=== PATIENT | male | born 1950 | race Caucasian/White ===

== ENCOUNTER 2018-05-09 17:02 | Outpatient (REF) | payer MEDICARE, OTHER, SELFPAY ==
[2018-05-09 19:30] LABS: ALT 40 U/L (12-78); AST 35 U/L (15-37); Alkaline Phosphatase 104 U/L (46-116); Anion Gap 9.6 mmol/L (3-11); BUN 16 mg/dL (7-18); Bilirubin, Total 0.6 mg/dL (0.2-1.0); CO2 26.4 mmol/L (21.0-32.0); CREATININE 0.94 mg/dL (0.70-1.30); Calcium 8.7 mg/dL (8.5-10.1); Chloride 104 mmol/L (98-107); Cholesterol 221 mg/dL (50-200); Glucose 105 mg/dL (70-100); HDL Cholesterol 41 mg/dL (40-60); LDL CHOLESTEROL 159 mg/dL (<100); Potassium 3.9 mmol/L (3.5-5.1); Sodium 140 mmol/L (136-145); Total Protein 7.7 g/dL (6.4-8.2); Triglyceride 114 mg/dL (30-150)
[2018-05-11 10:37] LABS: Hepatitis C Ab w Rflx HCV PCR Negative (NEGAT)
== END 2018-05-09 17:22 ==
LOC: NCHCN 17:02
PROVIDERS: PCP Family Medicine; Visit Provider Family Medicine
DX: I10 Essential (primary) hypertension (principal); E78.5 Hyperlipidemia, unspecified; E11.9 Type 2 diabetes mellitus without complications; Z11.59 Encounter for screening for other viral diseases
CPT/HCPCS: 80053; 80061; 83721; 86803

== ENCOUNTER 2018-05-13 00:10 | Outpatient (CLI) | payer MEDICARE, OTHER, SELFPAY ==
--- NOTE | 2018-05-13 08:30 | ETT_ITS ---
*[facility]* *[facility]* [address] [place] [address] Stress Electrocardiography Garrick protocol Date of study: 05/13/2018 *PATIENT PRESENTATION* Height: 169.4cm (66.7in) Blood Pressure: Weight: 95.5kg (210lb) BSA: 2.15m^2 Referring physician: Camilo Garcia Ordering physician: Camilo Garcia Impressions: - Markedly abnormal study. - High risk features on this markedly positive stress test. Summary: 1. Stress: The target heart rate was achieved. Recommendations: Recommended patient go to ER for referral to [facility] for [facility]. Indication: R07.89. History: REASON FOR VISIT: THIS PATIENT WITH TYPE 2 DIABETES AND HYPERTENSION REPORTS CHEST BURNING WITH ACTIVITIES LIKE RUNNING A CHAIN SAW OR SHOVELING IT SUBSIDES WITH REST HE ALSO REPORTS NOTING MORE SHORTNESS OF BREATH WITH ACTIVITY. Risk factors: Family history of coronary artery disease. Hypertension. Diabetes mellitus. Obesity. Cholesterol: 221mg/dl. HDL: 41mg/dl. LDL: 159mg/dl. Triglycerides: 114mg/dl. ALLERGIES: NO KNOWN DRUG ALLERGIES. MEDICATIONS: LISINOPRIL 10 MG DAILY. ASPIRIN 325 MG TAKE 1/2 TAB DAILY PRN. Protocol: Garrick protocol. Baseline ECG: SINUS RHYTHM. HR 75 BPM. Stress protocol: + +---+ + !Stage !HR !BP (mmHg) ! + +---+ + !Baseline supine !69 !146/84 (105)! + +---+ + !Baseline standing !71 !138/80 (99) ! + +---+ + !Stage I; 1.7mph, 10degrees; 3 min !138!152/80 (104)! + +---+ + !Stage II; 2.5mph, 12degrees; 3 min!156! ! + +---+ + !Peak stress !160! ! + +---+ + !Recovery; 1 min !160!160/72 (101)! + +---+ + !Recovery; 3 min !102!174/90 (118)! + +---+ + !Recovery; 6 min !98 !132/72 (92) ! + +---+ + * Stress results: Maximal heart rate during stress was 160bpm (104% of maximal predicted heart rate). The maximal predicted heart rate was 154bpm. The target heart rate was achieved. The rate-pressure product for the peak heart rate and blood pressure was 67383jd Hg/min. Stress ECG: TREADMILL PORTION OF STRESS TEST ENDED IN 4 MINUTES & 46 SECONDS BECAUSE OF CHEST BURNING. HEART RATE AND BLOOD PRESSURE RESPONSE TO EXERCISE MAX HR = 160 % OF TARGET = 103 OCCASIONAL PVCs APPROXIMATE METS ACHIEVED = 6.74 CHEST BURNING AT PEAK EXERCISE. CHEST BURNING SUBSIDED BY [address] SEGMENT ELEVATIONS IN PRECORDIAL LEADS MOST PROMINENT IN LEADS V3 & V4. ST SEGMENT ELEVATIONS FIRST NOTED AFTER 3 MINUTES OF TREADMILL EXERCISE. WIDENING OF QRS ALSO NOTED DURING PEAK EXERCISE. WIDENING SUBSIDED BY [address] SEGMENT STILL ELEVATED IN LEAD V3. MILDLY FUNCTIONAL CAPACITY FOR EXERCISE. DR MCKEON CONSULTED REGARDING ST SEGMENT CHANGES AND CHEST BURNING SYMPTOMS. PT SENT TO THE ER PER DR MCKEON'S REQUEST. Study data: Dale Mckeon MD supervised and was readily available during the procedure. This study was interpreted by [facility]. Study status: Routine. Consent: The risks, benefits, and alternatives to the procedure were explained to the patient and informed consent was obtained. Procedure: Initial setup. A baseline ECG was recorded. Surface ECG leads and manual cuff blood pressure measurements were monitored. Heart sounds: Normal. Lung sounds: Normal. Treadmill exercise testing was performed using the Garrick protocol. Study completion: The patient tolerated the procedure well and was discharged from the lab. Discharge: The patient left the laboratory in stable condition. Birthdate: Patient birthdate: 1950. Sex: Gender: male. Study date: Study date: 05/13/2018. Study time: 08:30 AM. Signature Documentation: The Stress ECG portion of this study was interpreted by Dale Mckeon MD. Electronically signed by Dale Mckeon 05/13/2018 10:21
== END 2018-05-13 00:30 ==
PROVIDERS: PCP Family Medicine; Visit Provider Family Medicine
DX: R07.89 Other chest pain (principal); R94.30 Abnormal result of cardiovascular function study, unspecified; R06.02 Shortness of breath; I10 Essential (primary) hypertension; E11.9 Type 2 diabetes mellitus without complications; Z82.49 Family history of ischemic heart disease and other diseases of the circulatory system
CPT/HCPCS: 93016; 93018; 93017

== ENCOUNTER 2018-05-13 09:18 | Emergency (ER) | payer MEDICARE, OTHER, SELFPAY ==
--- NOTE | 2018-05-13 09:41 | NUR.NOTE ---
0925: Patient refusing EKG or other treatment at this time. Understands risk of without treatment. Requesting to speak with MD. Nursing Note:
--- NOTE | 2018-05-13 09:47 | ED.GENADUL_ITS ---
Discharge Plan Disposition Patient Disposition: AGAINST MEDICAL ADVICE Condition: Stable Discharge Details Chief Complaint: GenMedical Clinical Impression: Chest pain, Abnormal stress test Primary Care Provider: Camilo Garcia ED Provider: Nano Norris Discharge Instructions Instructions: Chest Pain (ED) Additional Instructions: You were leaving AGAINST MEDICAL ADVICE. Your abnormal stress test today indicated that you likely will need additional testing which may require cardiac catheterization as well as transfer to [facility]. Call your primary care doctor today to schedule follow-up appointment for reevaluation as soon as possible. Return immediately to the emergency department any worsening or new concerning symptoms. Discharge Data Discharge Date/Time-TO BE ENTERED AT DEPARTURE: 05/13/18 09:52 Discharge Physician: Nano Norris Medical Decision Making 67-year-old male with a history of diabetes, hypertension, high cholesterol who presents from cardiac stress lab for positive stress test today. Upon arrival to ED, patient refused vitals, EKG and states he needs to leave to get home for a Social Security appointment at 1045. Patient states that he is been having intermittent chest pain on and off for months worse with exertion and better with rest denies any other associated symptoms. Discussed with Dr. Neal and he stated that patient had a high risk stress test today in which he developed chest pain, with ST elevation in the precordial leads. He had recommended patient be evaluated in the ED with consideration for plan for cardiac catheterization/transfer. Patient is requesting to leave. Had a long discussion regarding the risks of and disability due to his abnormal stress test. He demonstrated capacity to make decisions and was able to reiterate the risks back to me. AMA form signed. Cardiology will call patient at home to schedule follow-up appointment for reevaluation. It was discussed considering starting a beta janae with Dr. Neal and patient but patient had refused vitals so I am unsure of his heart rate or blood pressure and pt is aware of this plan and will f/u with cardiology regarding this. HPI General Mode of arrival: ambulatory . Date/Time Provider Initiated Documentation: 05/13/18 09:34 . Limitations to Documentation: no limitations . Information obtained by: patient . HPI Narrative: Patient is a 67-year-old male with a history of hypertension, high cholesterol, diabetes who presents from cardiology for questionable positive stress test today. Patient had a stress test ordered per his primary doctor Dr. Garcia for intermittent chest pain for the past 2 months. Patient states the chest pain has been worse with exertion and better with rest. He denies any chest pain at present. Patient denies any associated symptoms of shortness of breath, nausea, vomiting or dizziness with it. Patient states his stress test was ordered by his primary care Dr. Garcia on Wednesday. Patient was sent from the cardiac stress lab for ED evaluation for positive stress test today. Patient states he was recently started on aspirin, Lipitor and lisinopril. Related Data Allergies Allergy/AdvReac Type Severity Reaction Status Date / Time No Known Drug Allergies Allergy Unverified 06/19/15 12:51 General Stated Complaint: GenMedical ADRIAN: 2 Review of Systems Review of Systems All systems reviewed & are unremarkable except as noted in HPI and below Constitutional Reports as per HPI, Denies chills and Denies fever(s) Eyes Denies blurry vision ENT Denies dizziness, Denies sore throat and Denies throat swelling Cardiovascular Denies chest pain and Denies dyspnea Respiratory Denies dyspnea Gastrointestinal Denies abdominal pain, Denies diarrhea and Denies vomiting Genitourinary Denies hematuria and Denies dysuria Musculoskeletal Denies back pain and Denies numbness Integumentary/Breasts Denies lesions and Denies rash Neurologic Denies dizziness and Denies numbness Allergic/Immunologic Denies throat swelling [facility] Medical History Hyperlipemia (Acute) Diabetes (Chronic) HTN (hypertension) (Chronic) Bilateral inguinal hernia Surgical History No significant past surgical history (Acute) Social History alcohol intake: current alcohol intake frequency: a few times a month substance use type: does not use Exam Const General: cooperative, healthy appearing and no acute distress HENAZ Head: normal to inspection Face and sinus: normal facial exam Eyes General: appearance normal, both eyes and all related structures Neck Neck: normal visual inspection and No submandibular swelling Lymphatic: no lymphadenopathy noted Resp Effort & Inspection: normal respiratory effort and able to speak in complete sentences Auscultation: clear to auscultation bilaterally Cardio Rate: regular rate Rhythm: regular rhythm GI Palpation: soft, not firm, not rigid and nontender Skin General skin exam: no rashes or lesions noted Neuro General: alert, awake and oriented x3 Cognition: normal cognition Speech: speech normal Motor: muscle tone normal throughout Sensory Exam: no sensory deficits noted Extrem General: normal to inspection, full ROM and no edema Psych Appearance: grossly normal Mental Status: mental status grossly normal Speech and Movement: speech and movement normal Affect: normal affect
--- NOTE | 2018-05-13 10:02 | PDOC.ERCMPRO ---
Care Management Progress Note 05/13-Chris was brought to the emergency department by MERRILL Wolf. Chris was at the hospital for a stress test and it was abnormal and he was also complaining of chest pain. Met with Chris as he did not want to stay for further testing. Multiple issues preventing him from staying. Chris states that he has a $2500 deductible. Chris has Medicare and [employer] and states the $2500 is with [employer]. This CM has not heard of that deductible as a secondary to Medicare. Ar[employer] in [employer] is currently running the [employer]. Discussed patient assistance and gave Chris a Patient Assistance form to complete. Chris also states that he has a Social Security appt, via phone, at 1015 this morning and he can not miss this. Chris states that he has horses and cows to feed at home. Discussed family or neighbors helping him and he states that he would not ask his family and that he could ask a neighbor but they are all so busy. Discussed with Chris that he would be leaving AMA. Kristine MOMIN also leaving AMA and the possibility of without the proper testing and treatment. Please see provider note. Chris did leave AMA. He does have this CM's contact information if further assistance is needed.
--- NOTE | 2018-05-13 10:50 | CMPROGNOTE_ITS ---
Care Management Progress Note 05/13-Chris was brought to the emergency department by MERRILL Wolf. Chris was at the hospital for a stress test and it was abnormal and he was also complaining of chest pain. Met with Chris as he did not want to stay for further testing. Multiple issues preventing him from staying. Chris states that he has a $2500 deductible. Chris has Medicare and [employer] and states the $2500 is with [employer]. This CM has not heard of that deductible as a secondary to Medicare. Ar[employer] in [employer] is currently running the [employer]. Discussed patient assistance and gave Chris a Patient Assistance form to complete. Chris also states that he has a Social Security appt, via phone, at 1015 this morning and he can not miss this. Chris states that he has horses and cows to feed at home. Discussed family or neighbors helping him and he states that he would not ask his family and that he could ask a neighbor but they are all so busy. Discussed with Chris that he would be leaving AMA. Kristine MOMIN also leaving AMA and the possibility of without the proper testing and treatment. Please see provider note. Chris did leave AMA. He does have this CM's contact information if further assistance is needed.
== END 2018-05-13 09:52 | disposition left against medical advice (07) ==
PROVIDERS: Emergency Provider Physician Assistant; PCP Family Medicine
DX: R07.9 Chest pain, unspecified (principal); R94.39 Abnormal result of other cardiovascular function study; R94.31 Abnormal electrocardiogram [ECG] [EKG]; Z53.29 Procedure and treatment not carried out because of patient's decision for other reasons; E11.9 Type 2 diabetes mellitus without complications; I10 Essential (primary) hypertension
CPT/HCPCS: 93016; 93018; 99281; 93017

== ENCOUNTER 2018-06-09 09:37 | Outpatient (RCR) | payer MEDICARE, OTHER, SELFPAY | END 2018-06-16 23:59 | disposition home or self-care (01) | LOC: CR 09:37 | PROVIDERS: PCP Family Medicine; Visit Provider Family Medicine | DX: I25.2 Old myocardial infarction (principal); I10 Essential (primary) hypertension; Z51.89 Encounter for other specified aftercare ==

== ENCOUNTER 2018-07-04 11:56 | Outpatient (REF) | payer MEDICARE, OTHER, SELFPAY ==
[2018-07-04 19:46] LABS: HCT 38.5 % (40.0-50.0); HGB 12.7 g/dL (13.5-17.5); Mean Corpuscular Hemoglobin 28.7 pg (27.0-33.0); Mean Corpuscular Volume 86.9 fL (80-95); Mean Platelet Volume 9.5 fL (8.0-11.0); Platelet Count 314 x1000/uL (130-400); RBC 4.43 m/cumm (4.50-6.00); RBC Distribution Width 14.6 % (11.8-14.1); White Blood Cell Count 6.89 k/cumm (4.4-10.8)
[2018-07-04 19:58] LABS: Anion Gap 10.8 mmol/L (3-11); BUN 23 mg/dL (7-18); CO2 25.2 mmol/L (21.0-32.0); CREATININE 0.86 mg/dL (0.70-1.30); Chloride 104 mmol/L (98-107); Cholesterol 132 mg/dL (50-200); Glucose 112 mg/dL (70-100); HDL Cholesterol 34 mg/dL (40-60); LDL CHOLESTEROL 80 mg/dL (<100); Potassium 4.6 mmol/L (3.5-5.1); Sodium 140 mmol/L (136-145); Triglyceride 131 mg/dL (30-150)
== END 2018-07-04 12:16 ==
LOC: NCHCN 11:56
PROVIDERS: PCP Family Medicine; Visit Provider Family Medicine
DX: I25.810 Atherosclerosis of coronary artery bypass graft(s) without angina pectoris (principal); I10 Essential (primary) hypertension; J11.1 Influenza due to unidentified influenza virus with other respiratory manifestations; D50.0 Iron deficiency anemia secondary to blood loss (chronic)
CPT/HCPCS: 80048; 80061; 83721; 85027

== ENCOUNTER 2018-07-15 12:53 | Outpatient (RCR) | payer MEDICARE, OTHER, SELFPAY | END 2018-07-17 23:59 | disposition home or self-care (01) | LOC: CR 12:53 | PROVIDERS: PCP Family Medicine; Visit Provider Family Medicine | DX: I25.2 Old myocardial infarction (principal); I10 Essential (primary) hypertension; Z51.89 Encounter for other specified aftercare | CPT/HCPCS: S9472 ==

== ENCOUNTER 2018-08-05 13:19 | Outpatient (RCR) | payer MEDICARE, OTHER, SELFPAY | END 2018-08-16 23:59 | disposition home or self-care (01) | LOC: CR 13:19 | PROVIDERS: PCP Family Medicine; Visit Provider Family Medicine | DX: I25.2 Old myocardial infarction (principal); I10 Essential (primary) hypertension; Z51.89 Encounter for other specified aftercare | CPT/HCPCS: S9472 ==

== ENCOUNTER → 2018-12-08 09:47 | Outpatient (BNVA) | payer MEDICARE, OTHER, SELFPAY | PROVIDERS: PCP Family Medicine; Visit Provider Internal Medicine Cardiovascular Disease | DX: I25.10 Atherosclerotic heart disease of native coronary artery without angina pectoris (principal); Z95.1 Presence of aortocoronary bypass graft; E11.9 Type 2 diabetes mellitus without complications; I10 Essential (primary) hypertension; I34.0 Nonrheumatic mitral (valve) insufficiency; E78.5 Hyperlipidemia, unspecified | CPT/HCPCS: 99214 ==

== ENCOUNTER → 2019-09-25 15:40 | Outpatient (BNVA) | payer MEDICARE, OTHER, SELFPAY | PROVIDERS: PCP Family Medicine; Referring Provider Family Medicine; Visit Provider Internal Medicine Cardiovascular Disease | DX: I34.0 Nonrheumatic mitral (valve) insufficiency (principal); I10 Essential (primary) hypertension; E78.5 Hyperlipidemia, unspecified; Z95.1 Presence of aortocoronary bypass graft; E11.9 Type 2 diabetes mellitus without complications; Z79.84 Long term (current) use of oral hypoglycemic drugs | CPT/HCPCS: 99204; 99443 ==

== ENCOUNTER 2019-10-10 09:17 | Outpatient (REF) | payer MEDICARE, OTHER, SELFPAY ==
[2019-10-10 16:02] LABS: HGB 15.4 g/dL (13.5-17.5); Mean Corp. HGB Concentration 34.2 g/dL (32.0-36.0); Mean Corpuscular Volume 87.5 fL (80-95); Mean Platelet Volume 9.9 fL (8.0-11.0); Platelet Count 231 x1000/uL (130-400); RBC 5.14 m/cumm (4.50-6.00); RBC Distribution Width 13.4 % (11.8-14.1); White Blood Cell Count 6.52 k/cumm (4.4-10.8)
[2019-10-10 16:38] LABS: Anion Gap 11.7 mmol/L (3-11); BUN 20 mg/dL (7-18); CO2 23.3 mmol/L (21.0-32.0); CREATININE 1.02 mg/dL (0.70-1.30); Calcium 8.8 mg/dL (8.5-10.1); Chloride 104 mmol/L (98-107); Glucose 172 mg/dL (74-106); Potassium 4.3 mmol/L (3.5-5.1); Sodium 139 mmol/L (136-145)
== END 2019-10-10 09:37 ==
LOC: NCHCN 09:17
PROVIDERS: PCP Family Medicine; Visit Provider Family Medicine
DX: I10 Essential (primary) hypertension (principal); E11.9 Type 2 diabetes mellitus without complications; D50.0 Iron deficiency anemia secondary to blood loss (chronic)
CPT/HCPCS: 80048; 85027

== ENCOUNTER → 2020-09-30 08:57 | Outpatient (BNVA) | payer MEDICARE, OTHER, SELFPAY | PROVIDERS: PCP Family Medicine; Referring Provider Family Medicine; Visit Provider Internal Medicine Cardiovascular Disease | DX: I25.810 Atherosclerosis of coronary artery bypass graft(s) without angina pectoris (principal); Z79.82 Long term (current) use of aspirin; I10 Essential (primary) hypertension; I34.0 Nonrheumatic mitral (valve) insufficiency | CPT/HCPCS: 99214 ==

== ENCOUNTER 2020-10-07 11:29 | Outpatient (REF) | payer MEDICARE, OTHER, SELFPAY ==
[2020-10-07 16:07] LABS: Calculated LDL 68 mg/dL (<100); Cholesterol 128 mg/dL (<200); HDL Cholesterol 35 mg/dL (40-60); Triglyceride 127 mg/dL (<150)
== END 2020-10-07 11:30 | disposition home or self-care (01) ==
LOC: NCHCN 11:29
PROVIDERS: PCP Family Medicine; Visit Provider Family Medicine
DX: I25.810 Atherosclerosis of coronary artery bypass graft(s) without angina pectoris (principal)
CPT/HCPCS: 80061

== ENCOUNTER 2021-04-25 19:23 | Outpatient (REF) | payer MEDICARE, OTHER, SELFPAY ==
[2021-04-25 17:03] LABS: Anion Gap 11.1 mmol/L (3-11); BUN 21 mg/dL (7-18); CO2 25.9 mmol/L (21.0-32.0); CREATININE 0.9 mg/dL (0.70-1.30); Calcium 8.6 mg/dL (8.5-10.1); Chloride 103 mmol/L (98-107); Glucose 144 mg/dL (74-106); Potassium 4.3 mmol/L (3.5-5.1); Sodium 140 mmol/L (136-145)
== END 2021-04-25 19:24 | disposition home or self-care (01) ==
LOC: NCHCN 19:23
PROVIDERS: PCP Family Medicine; Visit Provider Family Medicine
DX: E11.9 Type 2 diabetes mellitus without complications (principal)
CPT/HCPCS: 80048

== ENCOUNTER → 2021-09-29 09:35 | Outpatient (BNVA) | payer MEDICARE, OTHER, SELFPAY | PROVIDERS: PCP Family Medicine; Visit Provider Internal Medicine Cardiovascular Disease | DX: I34.0 Nonrheumatic mitral (valve) insufficiency (principal); I25.10 Atherosclerotic heart disease of native coronary artery without angina pectoris; I10 Essential (primary) hypertension; Z95.1 Presence of aortocoronary bypass graft; E78.5 Hyperlipidemia, unspecified | CPT/HCPCS: 99214; 99213 ==

== ENCOUNTER 2022-09-28 09:28 | Outpatient (CLI) | payer MEDICARE, OTHER, SELFPAY ==
--- NOTE | 2022-09-28 09:15 | RT.EKG_ITS ---
APPROVED REPORT Exam: Resting ECG Reason for Exam: cardiac evaluation Patient Location: O HR:57 bpm ECG Measurements Heart Rate 57 AXIS IN 184 P 44 QRSd 90 QRS 49 QT 381 T 79 QTc 371 Conclusion Sinus rhythm...normal P axis, V-rate 50- 99 Anteroseptal infarct, old...Q >40mS, V1-V2
== END 2022-09-28 09:29 | disposition home or self-care (01) ==
LOC: DI.CARD 09:28
PROVIDERS: PCP Family Medicine; Visit Provider Internal Medicine Cardiovascular Disease
DX: I10 Essential (primary) hypertension (principal); I25.10 Atherosclerotic heart disease of native coronary artery without angina pectoris; I34.0 Nonrheumatic mitral (valve) insufficiency; Z95.1 Presence of aortocoronary bypass graft; Z13.6 Encounter for screening for cardiovascular disorders
CPT/HCPCS: 93010

== ENCOUNTER → 2022-09-28 09:30 | Outpatient (BNVA) | payer MEDICARE, OTHER, SELFPAY | PROVIDERS: PCP Family Medicine; Referring Provider Family Medicine; Visit Provider Internal Medicine Cardiovascular Disease | DX: E78.5 Hyperlipidemia, unspecified (principal); I25.10 Atherosclerotic heart disease of native coronary artery without angina pectoris; I10 Essential (primary) hypertension | CPT/HCPCS: 93005; 99213 ==

== ENCOUNTER 2022-11-17 18:40 | Outpatient (REF) | payer MEDICARE, OTHER, SELFPAY ==
[2022-11-17 20:31] LABS: Anion Gap 9.6 mmol/L (3-11); BUN 19 mg/dL (7-18); CO2 25.4 mmol/L (21.0-32.0); CREATININE 0.9 mg/dL (0.70-1.30); Calcium 8.7 mg/dL (8.5-10.1); Chloride 104 mmol/L (98-107); Estimated GFR 91.88 (mL/min/1.73m2); Glucose 230 mg/dL (74-106); Potassium 4.2 mmol/L (3.5-5.1); Sodium 139 mmol/L (136-145)
[2022-11-17 20:53] LABS: COMMENT (LAB VIEW ONLY) 104.09 mg/dL; Microalb ug/mg Crea 12.2 ug/mg Cr
[2022-11-19 10:11] LABS: PSA, Diagnostic 2.3 ng/mL (<=6.5)
== END 2022-11-17 18:41 | disposition home or self-care (01) ==
LOC: NCHCN 18:40
PROVIDERS: PCP Family Medicine; Visit Provider Family Medicine
DX: E11.9 Type 2 diabetes mellitus without complications (principal); N40.1 Benign prostatic hyperplasia with lower urinary tract symptoms
CPT/HCPCS: 80048; 82043; 82570; 84153

== ENCOUNTER 2023-10-25 13:50 | Outpatient (REF) | payer MEDICARE, SELFPAY ==
[2023-10-25 16:17] LABS: COMMENT (LAB VIEW ONLY) 144.08 mg/dL; Microalb ug/mg Crea 4.9 ug/mg Cr
== END 2023-10-25 13:51 | disposition home or self-care (01) ==
LOC: NCHCN 13:50
PROVIDERS: PCP Family Medicine; Visit Provider Student in an Organized Health Care Education/Training Program
DX: E11.9 Type 2 diabetes mellitus without complications (principal)
CPT/HCPCS: 82043; 82570

== ENCOUNTER → 2023-10-29 09:18 | Outpatient (BNVA) | payer MEDICARE, SELFPAY | PROVIDERS: PCP Family Medicine; Visit Provider Internal Medicine Cardiovascular Disease | DX: I25.10 Atherosclerotic heart disease of native coronary artery without angina pectoris (principal); I10 Essential (primary) hypertension | CPT/HCPCS: 99213 ==

== ENCOUNTER 2024-08-11 10:47 | Outpatient (REF) | payer MEDICARE, SELFPAY ==
[2024-08-11 16:01] LABS: COMMENT (LAB VIEW ONLY) 150.74 mg/dL; Microalb ug/mg Crea 11.7 ug/mg Cr
== END 2024-08-11 10:48 | disposition home or self-care (01) ==
LOC: NCHCN 10:47
PROVIDERS: PCP Student in an Organized Health Care Education/Training Program; Visit Provider Student in an Organized Health Care Education/Training Program
DX: E11.9 Type 2 diabetes mellitus without complications (principal)
CPT/HCPCS: 82043; 82570

== ENCOUNTER 2024-10-27 08:28 | Outpatient (CLI) | payer MEDICARE, SELFPAY ==
--- NOTE | 2024-10-27 08:45 | RT.EKG_ITS ---
APPROVED REPORT Exam: Resting ECG Reason for Exam: Annual Patient Location: O HR:44 bpm ECG Measurements Heart Rate [address] 201 P 16 QRSd 97 QRS 61 QT 419 T 71 QTc 359 Conclusion Sinus bradycardia...rate< 50
== END 2024-10-27 08:29 | disposition home or self-care (01) ==
LOC: DI.CARD 08:58
PROVIDERS: PCP Student in an Organized Health Care Education/Training Program; Visit Provider Internal Medicine Cardiovascular Disease
DX: Z95.1 Presence of aortocoronary bypass graft (principal); R00.1 Bradycardia, unspecified
CPT/HCPCS: 93010

== ENCOUNTER → 2024-10-27 08:28 | Outpatient (BNVA) | payer MEDICARE, SELFPAY | PROVIDERS: PCP Student in an Organized Health Care Education/Training Program; Referring Provider Student in an Organized Health Care Education/Training Program; Visit Provider Internal Medicine Cardiovascular Disease | DX: Z95.1 Presence of aortocoronary bypass graft (principal) | CPT/HCPCS: 99213; 93005 ==